=== PATIENT | female | born 1980 | race Hispanic/Latino ===

== ENCOUNTER 2018-09-27 09:43 | Day surgery (SDC) | payer MEDICAID ==
[2018-09-27] MEDS ORDERED: Lactated Ringer's 500 ML IV ONE (09:54)
[2018-09-27 10:06] VITALS: BMI 27.1
[2018-09-27] MEDS ORDERED: Propofol 10 mg/ml Inj (20 ML) ONE ×2 (10:36→10:56)
[2018-09-27 11:07] VITALS: TEMP 97
[2018-09-27 11:24] VITALS: BP 101/61; PULSE 77; RESP 19; O2SAT 97
== END 2018-09-27 12:00 | disposition home or self-care (01) ==
LOC: H.ENDO 09:43
PROVIDERS: ATTEND Internal Medicine Gastroenterology
DX: K21.9 Gastro-esophageal reflux disease without esophagitis (principal); R19.7 Diarrhea, unspecified; K29.50 Unspecified chronic gastritis without bleeding
CPT/HCPCS: 43239; 88305; J2001; J2704; J7120